=== PATIENT | female | born 1975 | race American Indian/Alaskan Native ===

== ENCOUNTER 2017-05-29 09:32 | Emergency (ER) | payer SELFPAY ==
[2017-05-29 09:52] VITALS: BP 135/93
--- NOTE | 2017-05-29 09:53 | Emergency Department Report ---
Chief Complaint: Pain General Stated Complaint: LEFT SIDED PAIN Time Seen by Provider: 05/29/17 09:50 - HPI History of Present Illness: pt states she woke up with L neck pain that radiates down to her left arm and leg. - ROS Review of Systems: - weakness - cp - Exam Physical Exam: PT is alert, appears uncomfortable. + post c-spine tenderness. + L trapezius tenderness MSE screening note: Focused history and physical exam performed. Due to findings the following was ordered: xr, labs ED Disposition for MSE Condition: Stable
[2017-05-29 10:26] LABS: Basophils % (Auto) 1.1 % (0.0-1.8); Eosinophils % (Auto) 1.4 % (0.0-4.3); Hematocrit 38.3 % (30.3-42.9); Hemoglobin 12.8 gm/dl (10.1-14.3); Mean Corpuscular HGB Conc 33 % (30-34); Mean Corpuscular Hemoglobin 32 pg (28-32); Mean Corpuscular Volume 96 fl (79-97); Platelet Count 255 K/mm3 (140-440); Red Cell Distribution Width 12.9 % (13.2-15.2); White Blood Count 4.3 K/mm3 (4.5-11.0)
[2017-05-29 10:43] LABS: Alanine Aminotransferase 9 units/L (7-56); Albumin 4.7 g/dL (3.9-5); Albumin/Globulin Ratio 1.4 %; Alkaline Phosphatase 39 units/L (35-129); Anion Gap 19 mmol/L; BUN/Creatinine Ratio 12.85; Blood Urea Nitrogen 9 mg/dL (7-17); Calcium 9.6 mg/dL (8.4-10.2); Carbon Dioxide 24 mmol/L (22-30); Chloride 103.6 mmol/L (98-107); Creatine Kinase 96 units/L (30-135); Glucose 94 mg/dL (65-100); Potassium 3.9 mmol/L (3.6-5.0); Sodium 143 mmol/L (137-145); Total Protein 8.1 g/dL (6.3-8.2)
--- NOTE | 2017-05-29 11:42 | XRay Report ---
CERVICAL SPINE RADIOGRAPHS INDICATION: Pain running down left side of neck. COMPARISON: None similar at this institution. FINDINGS: AP, open-mouth and lateral cervical spine radiographs demonstrate dens partly obscured due to overlying skull, though grossly unremarkable, in so far seen as also the lateral masses. Few radiopaque dental fillings. Clear imaged lung apices. Intact craniocervical articulation on the lateral view with normal predental space, airway and prevertebral soft tissues. Normal vertebral body stature with slight C5 and C6 degenerative spurring. Slight C5-C6 disc narrowing also not excluded. Adequate visualization up to C7-T1 disc. CONCLUSION: No acute cervical spine radiographic abnormality with slight C5-C6 degenerative changes suspected, as described. Please correlate. Thank you for the opportunity to participate in this patient's care.
--- NOTE | 2017-06-12 00:09 | ED Elopement Review ---
ED Pt Elopement review - Results review Lab results: Laboratory Tests 05/29/17 05/29/17 05/29/17 09:56 09:56 09:56 WBC 4.3 L RBC 4.00 Hgb 12.8 Hct 38.3 MCV 96 MCH 32 MCHC 33 RDW 12.9 L Plt Count 255 Lymph % (Auto) 26.1 [place] % (Auto) 7.5 H Eos % (Auto) 1.4 Baso % (Auto) 1.1 Lymph # 1.1 L [place] # 0.3 Eos # 0.1 Baso # 0.0 Seg Neutrophils % 63.9 Seg Neutrophils # 2.8 Sodium 143 Potassium 3.9 Chloride 103.6 Carbon Dioxide 24 Anion Gap 19 BUN 9 Creatinine 0.7 Estimated GFR > 60 BUN/Creatinine Ratio 12.85 Glucose 94 Calcium 9.6 Total Bilirubin 0.60 AST 15 ALT 9 Alkaline Phosphatase 39 Total Creatine Kinase 96 Total Protein 8.1 Albumin 4.7 Albumin/Globulin Ratio 1.4 HCG, Qual Negative - Call Back decision Pt Call Back Decision: No action required
== END 2017-05-29 16:15 | disposition left against medical advice (07) ==
LOC: ED 09:32
DX: M54.2 Cervicalgia (principal); Z53.21 Procedure and treatment not carried out due to patient leaving prior to being seen by health care provider
CPT/HCPCS: 36415; 72040; 80053; 82550; 84703; 85025

== ENCOUNTER 2018-04-07 11:16 | Emergency (ER) | payer SELFPAY ==
[2018-04-07 11:28] VITALS: BP 133/69
--- NOTE | 2018-04-07 12:05 | Emergency Department Report ---
ED Female HPI - General Chief complaint: Urogenital-Female Stated complaint: VAG IRRATATION/BLEEDING Time Seen by Provider: 04/07/18 11:50 Source: patient, family Mode of arrival: Ambulatory Limitations: No Limitations - History of Present Illness Initial comments: This is a 43-year-old female who is here for irregular vaginal bleeding in and she says she is having in irritation with urinating that feels like burning. concern for STD but then she changed her mind and says she is not concern for STD she just wants to be checked for STD. Her is in the room with her and he states that he is not having any symptoms of STD to include penile burning or penile discharge but patient reports that she is having some vaginal discharge. Reports mild cramping to her abdomen on and off at pelvic area but none now. Denies any nausea or vomiting. Denies any back pain. Denies any urinary frequency or urgency. Denies any back pain. MD Complaint: vaginal bleeding, dysuria, pelvic pain, possible STD Onset/Timin -: days(s) Severity scale (0 -10): 0 Are you Now?: No Last Menstrual Period: 03/28/18 (spotting) EDC: 01/02/19 Associated Symptoms: vaginal bleeding, abdominal pain, dysuria. denies: vaginal discharge, nausea/vomiting, fever/chills, headaches, loss of appetite, hematuria, rash, seizure, shortness of breath, syncope, weakness - Related Data Sexually active: Yes (. Bilateral tubal ligation 20 years ago) Previous Rx's Medication Instructions Recorded Last Taken Type Nitrofurantoin Monohyd/M-Cryst 100 mg PO Q12H 7 Days #14 capsule 04/07/18 Unknown Rx [Macrobid 100 mg Capsule] Allergies Allergy/AdvReac Type Severity Reaction Status Date / Time aspirin AdvReac Unknown Verified 05/29/17 09:54 metronidazole [From Flagyl] AdvReac Unknown Verified 05/29/17 09:54 ED Review of Systems ROS: Stated complaint: VAG IRRATATION/BLEEDING Other details as noted in HPI Constitutional: denies: chills, fever ENT: denies: throat pain Respiratory: denies: cough, shortness of breath, SOB with exertion, SOB at rest , stridor, wheezing Cardiovascular: denies: chest pain, palpitations, edema, syncope Gastrointestinal: abdominal pain. denies: nausea, vomiting, diarrhea, constipation Genitourinary: dysuria, abnormal menses. denies: urgency, frequency, hematuria , discharge, dyspareunia Musculoskeletal: denies: back pain, joint swelling, arthralgia, myalgia Skin: denies: rash, lesions Neurological: denies: headache, weakness ED Past Medical Hx - Past Medical History Previous Medical History?: Yes Additional medical history: ibs, diverticulitis, neuropathy,fibromyalgia - Surgical History Past Surgical History?: Yes Hx Cholecystectomy: Yes Additional Surgical History: Bilateral tubal ligation 20 years ago - Family History Family history: hypertension - Social History Smoking Status: Never Smoker Substance Use Type: None - Medications Home Medications: Home Medications Medication Instructions Recorded Confirmed Last Taken Type Nitrofurantoin Monohyd/M-Cryst 100 mg PO Q12H 7 Days #14 capsule 04/07/18 Unknown Rx [Macrobid 100 mg Capsule] ED Physical Exam - General Limitations: No Limitations General appearance: alert, in no apparent distress - Head Head exam: Present: atraumatic, normocephalic, normal inspection - Eye Eye exam: Present: normal appearance, PERRL, EOMI Pupils: Present: normal accommodation - ENT ENT exam: Present: normal exam, normal orophraynx, mucous membranes moist - Neck Neck exam: Present: normal inspection, full ROM. Absent: tenderness, lymphadenopathy - Respiratory Respiratory exam: Present: normal lung sounds bilaterally. Absent: respiratory distress, chest wall tenderness - Cardiovascular Cardiovascular Exam: Present: regular rate, normal rhythm, normal heart sounds. Absent: systolic murmur, diastolic murmur - GI/Abdominal GI/Abdominal exam: Present: soft, normal bowel sounds. Absent: distended, tenderness, guarding, rebound, rigid, organomegaly, mass - External exam: Present: normal external exam Speculum exam: Present: vaginal bleeding. Absent: erythema, vaginal discharge, cervical discharge, foreign body, tissue, laceration Bi-manual exam: Present: normal bi-manual exam - Extremities Exam Extremities exam: Present: normal inspection, full ROM, normal capillary refill , other (no clubbing, cyanosis or edema. +2 pulses to all extremities and no neurovascular compromise). Absent: tenderness, pedal edema, joint swelling, calf tenderness - Back Exam Back exam: Present: normal inspection - Neurological Exam Neurological exam: Present: alert, oriented X3, normal gait - Psychiatric Psychiatric exam: Present: normal affect, normal mood - Skin Skin exam: Present: warm, dry, intact, normal color. Absent: rash ED Course Vital Signs 04/07/18 11:25 Temperature 99 F Pulse Rate 94 H Respiratory 16 Rate Blood Pressure 133/69 O2 Sat by Pulse 100 Oximetry - Reevaluation(s) Reevaluation #1: 04/07/18 13:43 Patient is stable throughout ED course. She did not want to be treated for gonorrhea and chlamydia. Wet prep is negative. Urine is positive for infection and culture sent. ED Medical Decision Making - Lab Data Lab Results 04/07/18 Range/Units 11:45 Urine Color Yellow (Yellow) Urine Turbidity Clear (Clear) Urine pH 5.0 (5.0-7.0) Ur Specific [place] 1.024 (1.003-1.030) Urine Protein 30 mg/dl (Negative) mg/dL Urine Glucose (UA) Neg (Negative) mg/dL Urine Ketones Neg (Negative) mg/dL Urine Blood Lg (Negative) Urine Nitrite Neg (Negative) Urine Bilirubin Neg (Negative) Urine Urobilinogen 2.0 (<2.0) mg/dL Ur Leukocyte Esterase Tr (Negative) Urine WBC (Auto) 3.0 (0.0-6.0) /HPF Urine RBC (Auto) 4.0 (0.0-6.0) /HPF U Epithel Cells (Auto) 6.0 (0-13.0) /HPF Urine Bacteria (Auto) 1+ (Negative) /HPF Urine Mucus 3+ /HPF Urine HCG, Qual Negative (Negative) Urine culture sent Patient with blood in her urine due to menses Wet prep negative for clue cells, yeast or Trichomonas CHL sent and pending - Medical Decision Making ED course This 43-year-old female here report that she has been having abnormal vaginal bleeding in and she's been on her menses for 10 days. She said her periods have been irregular and she just moved from [place] and she does not have a physician as yet. She complains of abdominal cramping on and off but none today. Patient initially told triage nurse that she was concerned for STD without having any vaginal discharge but when I asked her with her room she said she doesn't want to be treated for STD she just wants to be tested and her said that he doesn't have any symptoms. Patient was seen and examined by myself and she is in stable condition. She is having irregular periods and will need to be seen by [facility] Pelvic exam done and normal except she has vaginal bleeding in her vaginal vault and coming from her cervical os. Urinalysis positive for bacteria and leukocyte Estrace and she has large amount of blood which is from her menses. Abdominal exam is normal. [facility] pending, urine culture pending. test negative. Wet prep is negative.I discussed with her lab results and she voiced understanding and does not want to be treated for gonorrhea and chlamydia at this time. She will return to medical records to get her test results in 5 days. Patient was understanding of diagnoses and treatment plan and period A/P: 1: Urinary tract infection -positive bacteria, leukocyte esterase will sent home on Macrobid. Urine culture sent and pending. Patient has large amount of blood in her urine due to menses 2: Irregular menses: Refer to [facility] at [facility] and she does not have access to care. 3:Encounter for for STD testing-decline empirically treatment, wet prep is negative She given education on medication, diagnosis, need to follow up to get Pap smear and to go to [facility] for irregular menses. I also advised her that she needs to return to medical records with her ID to have results of her Gonorrhea and chlamydia tests in 5 days. She voiced understanding. Disposition discharged from emergency room in stable condition with her with prescription for Macrobid. She was given good Rx card and she is to follow -up with [facility] and primary care at [facility] and she was given information to clinic. Vital signs are stable she is afebrile. She voiced understanding of discharge instructions. - Differential Diagnosis threatened miscarriage, STD, UTI, PID Critical care attestation.: If time is entered above; I have spent that time in minutes in the direct care of this critically ill patient, excluding procedure time. ED Disposition Clinical Impression: Screen for STD (sexually transmitted disease), Irregular menstruation, Acute cystitis without hematuria, Vaginal bleeding Disposition: TO HOME OR SELFCARE Is pt being admited?: No Does the pt Need Aspirin: No Condition: Stable Instructions: Sexually Transmitted Diseases (ED), Menorrhagia (ED), Dysuria (ED ), Urinary Tract Infection in Women (ED) Additional Instructions: Please follow up with [facility] for [facility] and primary care. Call on Sunday discussion appointments Take medication as prescribed for her UTI Vaginal bleeding in gets excessive and he developed dizziness, nausea and her vomiting or feeling faint, please return to emergency room. plenty of fluids drink plenty of fluids including water and cranberry juice at least 2 L daily Prescriptions: Nitrofurantoin Monohyd/M-Cryst [Macrobid 100 mg Capsule] 100 mg PO Q12H 7 Days # 14 capsule Referrals: [facility] [Outside] - 04/08/18 (Follow-up follow primary care visits and [facility]) Forms: Work/School Release Form(ED)
[2018-04-07 12:29] LABS: Bacteria,Urine 1+ /HPF (Negative); Bilirubin,Urine NEG (Negative); Blood,Urine LG (Negative); Color,Urine Yellow (Yellow); Mucus,Urine 3+ /HPF
[2018-04-07 12:31] LABS: HCG Qualitative,Urine Negative (Negative)
== END 2018-04-07 14:10 | disposition home or self-care (01) ==
LOC: ED 11:16
DX: N30.00 Acute cystitis without hematuria (principal); N93.9 Abnormal uterine and vaginal bleeding, unspecified; Z11.3 Encounter for screening for infections with a predominantly sexual mode of transmission; N92.6 Irregular menstruation, unspecified; K58.9 Irritable bowel syndrome, unspecified; Z90.49 Acquired absence of other specified parts of digestive tract; Z98.51 Tubal ligation status; Z88.6 Allergy status to analgesic agent
CPT/HCPCS: 81001; 81025; 87210; 87591; 99284

== ENCOUNTER 2018-06-05 12:01 | Emergency (ER) | payer SELFPAY ==
[2018-06-05 12:10] VITALS: BP 127/78
[2018-06-05 14:18] LABS: Bacteria,Urine 1+ /HPF (Negative); Bilirubin,Urine NEG (Negative); Blood,Urine MOD (Negative); Color,Urine Amber (Yellow); Mucus,Urine 2+ /HPF
--- NOTE | 2018-06-05 15:28 | Emergency Department Report ---
- General Chief Complaint: Upper Respiratory Infection Stated Complaint: FLU SYMPTONS Time Seen by Provider: 06/05/18 15:15 Source: patient Mode of arrival: Ambulatory Limitations: No Limitations - History of Present Illness Initial Comments: 43 yo female with a past medical history of IBS, neuropathy, fibromyalgia presents to the ospital complaining of upper respiratory symptoms and fever since this a.m. Her son is sick with similar symptoms. Patient was sent home from work requesting an excuse and treatment. She complains of nasal congestion , itchy watery eyes, sore throat, dry cough occasionally productive of clear mucus. She had a fever 102 at home prior to arrival. She denies chest pain or shortness of breath. Patient had nausea vomiting last night and some diarrhea today but denies abdominal pain other than generalized soreness. Patient has not had much to eat or drink today. - Related Data Previous Rx's Medication Instructions Recorded Last Taken Type Nitrofurantoin Monohyd/M-Cryst 100 mg PO Q12H 7 Days #14 capsule 04/07/18 Unknown Rx [Macrobid 100 mg Capsule] Guaifenesin/Pseudoephedrne HCl 1 tab PO BID PRN #20 tab 06/05/18 Unknown Rx [Mucinex D ER 1,200-120 mg Tab] Ibuprofen [Motrin] 800 mg PO Q8HR PRN #30 tablet 06/05/18 Unknown Rx Loperamide [Imodium] 2 mg PO Q2HR PRN #15 capsule 06/05/18 Unknown Rx Ondansetron [Zofran Odt] 4 mg PO Q8HR PRN #20 tab.rapdis 06/05/18 Unknown Rx Allergies Allergy/AdvReac Type Severity Reaction Status Date / Time aspirin AdvReac Unknown Verified 05/29/17 09:54 metronidazole [From Flagyl] AdvReac Unknown Verified 05/29/17 09:54 ED Review of Systems ROS: Stated complaint: FLU SYMPTONS Other details as noted in HPI Comment: All other systems reviewed and negative ED Past Medical Hx - Past Medical History Previous Medical History?: Yes Additional medical history: ibs, diverticulitis, neuropathy,fibromyalgia - Surgical History Past Surgical History?: Yes Hx Cholecystectomy: Yes Additional Surgical History: Bilateral tubal ligation 20 years ago - Social History Smoking Status: Never Smoker Substance Use Type: None - Medications Home Medications: Home Medications Medication Instructions Recorded Confirmed Last Taken Type Nitrofurantoin Monohyd/M-Cryst 100 mg PO Q12H 7 Days #14 capsule 04/07/18 Unknown Rx [Macrobid 100 mg Capsule] Guaifenesin/Pseudoephedrne HCl 1 tab PO BID PRN #20 tab 06/05/18 Unknown Rx [Mucinex D ER 1,200-120 mg Tab] Ibuprofen [Motrin] 800 mg PO Q8HR PRN #30 tablet 06/05/18 Unknown Rx Loperamide [Imodium] 2 mg PO Q2HR PRN #15 capsule 06/05/18 Unknown Rx Ondansetron [Zofran Odt] 4 mg PO Q8HR PRN #20 tab.rapdis 06/05/18 Unknown Rx ED Physical Exam - General Limitations: No Limitations - Other Other exam information: General: No limitations, patient is alert in no acute distress Head exam: Atraumatic, normocephalic Eyes exam: Normal appearance ENT: Nasal congestion, no pharyngeal exudates Neck exam: Normal inspection, full range of motion, no meningismus nontender Respiratory exam: Clear to auscultation bilateral, no wheezes, rales, crackles Cardiovascular: Normal rate and rhythm, normal heart sounds Abdomen: Soft, nondistended, mild generalized tenderness without rebound, guarding, positive normal bowel sounds Extremity: Full range of motion normal inspection no deformity Back: Normal Inspection, full range of motion, no tenderness Neurologic: Alert, oriented x3, cranial nerves intact, no motor or sensory deficit Psychiatric: normal affect, normal mood Skin: Warm, dry, intact ED Course Vital Signs 06/05/18 12:06 Temperature 98.3 F Pulse Rate 104 H Respiratory 16 Rate Blood Pressure 127/78 O2 Sat by Pulse 96 Oximetry ED Medical Decision Making - Medical Decision Making Patient presented with signs of viral syndrome Mild tachycardia likely related to dehydration as indicated by high specific gravity and ketones in urine Patient will be treated symptomatically and provided work excuse as requested Will be discharged as requested - Differential Diagnosis UTI, pneumonia, bronchitis, pharyngitis Critical Care Time: No Critical care attestation.: If time is entered above; I have spent that time in minutes in the direct care of this critically ill patient, excluding procedure time. ED Disposition Clinical Impression: Viral syndrome Disposition: DC-01 TO HOME OR SELFCARE Is pt being admited?: No Does the pt Need Aspirin: No Condition: Stable Instructions: Viral Syndrome (ED) Additional Instructions: Take the medication as prescribed. Follow up with your doctor. Return if symptoms worsen as indicated by your discharge instructions. Take Tylenol or Motrin as needed for pain and fever Prescriptions: Guaifenesin/Pseudoephedrne HCl [Mucinex D ER 1,200-120 mg Tab] 1 tab PO BID PRN #20 tab PRN Reason: Cough Ibuprofen [Motrin] 800 mg PO Q8HR PRN #30 tablet PRN Reason: Pain, Moderate (4-6) Loperamide [Imodium] 2 mg PO Q2HR PRN #15 capsule PRN Reason: Diarrhea Ondansetron [Zofran Odt] 4 mg PO Q8HR PRN #20 tab.rapdis PRN Reason: Nausea And Vomiting Referrals: [facility] [Provider Group] - 3-5 Days Time of Disposition: 15:32
== END 2018-06-05 17:00 | disposition home or self-care (01) ==
LOC: ED 12:01
DX: B34.9 Viral infection, unspecified (principal); M79.7 Fibromyalgia; Z90.49 Acquired absence of other specified parts of digestive tract; Z98.51 Tubal ligation status; Z88.6 Allergy status to analgesic agent; Z88.1 Allergy status to other antibiotic agents
CPT/HCPCS: 81001; 99282

== ENCOUNTER 2018-10-28 07:00 | Emergency (ER) | payer SELFPAY ==
[2018-10-28 07:12] VITALS: BP 127/91
[2018-10-28 07:54] LABS: Bacteria,Urine 1+ /HPF (Negative); Bilirubin,Urine NEG (Negative); Blood,Urine NEG (Negative); Color,Urine Yellow (Yellow); Mucus,Urine 2+ /HPF; Protein,Urine <15 mg/dL mg/dL (Negative)
[2018-10-28 07:59] LABS: HCG Qualitative,Urine Negative (Negative)
--- NOTE | 2018-10-28 08:02 | Emergency Department Report ---
ED Dysuria HPI - HPI Chief Complaint: Abdominal Pain Stated Complaint: LT SIDE PAIN/CRAMPING Time Seen by Provider: 10/28/18 07:47 Duration: 1 Day Location of Discomfort: Flank (left) Severity: Mild Symptoms: Dysuria: No, Frequency: No, Suprapubic Pain: No, Flank Pain: No, Fever: No, Hematuria: No, Abdominal Pain: No, Previous UTI's: No Other History: Pt is 43 yo AA female who comes to the ER w l flank pain due to her fibromyalgia. She could not go to work today and is asking for a work note. no fever, no dysuria, no hematuria, no vaginal discharge. LMP 2 w ago. no home meds. no pcp. ED Review of Systems ROS: Stated complaint: LT SIDE PAIN/CRAMPING Other details as noted in HPI Comment: All other systems reviewed and negative Constitutional: denies: see HPI Eyes: denies: eye pain ENT: denies: throat pain Respiratory: denies: orthopnea Cardiovascular: denies: palpitations Endocrine: denies: excessive sweating Gastrointestinal: as per HPI. denies: nausea Genitourinary: as per HPI. denies: dysuria Musculoskeletal: denies: back pain Skin: denies: rash ED Past Medical Hx - Past Medical History Previous Medical History?: Yes Additional medical history: ibs, diverticulitis, neuropathy,fibromyalgia - Surgical History Past Surgical History?: Yes Hx Cholecystectomy: Yes Additional Surgical History: Bilateral tubal ligation 20 years ago - Social History Smoking Status: Former Smoker Substance Use Type: None - Medications Home Medications: Home Medications Medication Instructions Recorded Confirmed Last Taken Type Nitrofurantoin Monohyd/M-Cryst 100 mg PO Q12H 7 Days #14 capsule 04/07/18 Unknown Rx [Macrobid 100 mg Capsule] Guaifenesin/Pseudoephedrne HCl 1 tab PO BID PRN #20 tab 06/05/18 Unknown Rx [Mucinex D ER 1,200-120 mg Tab] Ibuprofen [Motrin] 800 mg PO Q8HR PRN #30 tablet 06/05/18 Unknown Rx Loperamide [Imodium] 2 mg PO Q2HR PRN #15 capsule 06/05/18 Unknown Rx Ondansetron [Zofran Odt] 4 mg PO Q8HR PRN #20 tab.rapdis 06/05/18 Unknown Rx Dysuria Exam - Exam General: Vital signs noted. No distress. Alert and acting appropriately. Exam: Yes Moist Mucous Membranes, No CVA Tenderness, No Abdominal Tenderness, No Rigidity or Guarding Labs: Lab Results 10/28/18 Range/Units 07:32 Urine Color Yellow (Yellow) Urine Turbidity Slightly-cloudy (Clear) Urine pH 5.0 (5.0-7.0) Ur Specific [place] 1.021 (1.003-1.030) Urine Protein <15 mg/dl (Negative) mg/dL Urine Glucose (UA) Neg (Negative) mg/dL Urine Ketones Neg (Negative) mg/dL Urine Blood Neg (Negative) Urine Nitrite Neg (Negative) Urine Bilirubin Neg (Negative) Urine Urobilinogen 4.0 (<2.0) mg/dL Ur Leukocyte Esterase Tr (Negative) Urine WBC (Auto) 3.0 (0.0-6.0) /HPF Urine RBC (Auto) 6.0 (0.0-6.0) /HPF U Epithel Cells (Auto) 13.0 (0-13.0) /HPF Urine Bacteria (Auto) 1+ (Negative) /HPF Urine Mucus 2+ /HPF Urine HCG, Qual Negative (Negative) ED Course Vital Signs 10/28/18 07:09 Temperature 97.7 F Pulse Rate 78 Respiratory 16 Rate Blood Pressure 127/91 O2 Sat by Pulse 100 Oximetry ED Medical Decision Making - Medical Decision Making asking for work note because she could not get up this am because of her fibromyalgia Lab Results 10/28/18 Range/Units 07:32 Urine Color Yellow (Yellow) Urine Turbidity Slightly-cloudy (Clear) Urine pH 5.0 (5.0-7.0) Ur Specific [place] 1.021 (1.003-1.030) Urine Protein <15 mg/dl (Negative) mg/dL Urine Glucose (UA) Neg (Negative) mg/dL Urine Ketones Neg (Negative) mg/dL Urine Blood Neg (Negative) Urine Nitrite Neg (Negative) Urine Bilirubin Neg (Negative) Urine Urobilinogen 4.0 (<2.0) mg/dL Ur Leukocyte Esterase Tr (Negative) Urine WBC (Auto) 3.0 (0.0-6.0) /HPF Urine RBC (Auto) 6.0 (0.0-6.0) /HPF U Epithel Cells (Auto) 13.0 (0-13.0) /HPF Urine Bacteria (Auto) 1+ (Negative) /HPF Urine Mucus 2+ /HPF Urine HCG, Qual Negative (Negative) - Differential Diagnosis here for a work note Critical care attestation.: If time is entered above; I have spent that time in minutes in the direct care of this critically ill patient, excluding procedure time. ED Disposition Clinical Impression: Fibromyalgia, Malingering Disposition: DC- TO HOME OR SELFCARE Is pt being admited?: No Does the pt Need Aspirin: No Condition: Stable Instructions: Fibromyalgia (ED) Additional Instructions: motrin or tylenol for pain follow up pcp below Referrals: [facility] [Primary Care Provider] - 3-5 Days AZALEA COOPER MD [Staff Physician] - 3-5 Days Forms: Work/School Release Form(ED) Time of Disposition: 08:02
== END 2018-10-28 08:05 | disposition home or self-care (01) ==
LOC: ED 07:00
DX: Z76.5 Malingerer [conscious simulation] (principal); M79.7 Fibromyalgia; K58.9 Irritable bowel syndrome, unspecified; G62.9 Polyneuropathy, unspecified; Z90.49 Acquired absence of other specified parts of digestive tract; Z98.51 Tubal ligation status; Z87.891 Personal history of nicotine dependence; Z88.6 Allergy status to analgesic agent; Z88.1 Allergy status to other antibiotic agents
CPT/HCPCS: 81001; 81025; 99283

== ENCOUNTER 2018-11-11 18:38 | Emergency (ER) | payer SELFPAY ==
[2018-11-11 18:53] VITALS: BP 133/76
[2018-11-11 19:21] LABS: Bilirubin,Urine NEG (Negative); Blood,Urine NEG (Negative); Color,Urine Yellow (Yellow); Mucus,Urine FEW /HPF; Protein,Urine <15 mg/dL mg/dL (Negative); WBC,Urine < 1.0 /HPF (0.0-6.0)
[2018-11-11] MEDS ORDERED: BENTYL PO ONE (21:39)
[2018-11-11] MEDS ORDERED: TYLENOL PO ONE (21:39)
[2018-11-11] MEDS ORDERED: ZOFRAN ODT PO ONE (21:40)
--- NOTE | 2018-11-11 21:44 | Emergency Department Report ---
ED Abdominal Pain HPI - General Chief Complaint: Abdominal Pain Stated Complaint: ABD PAIN/PAINFUL BOWEL MOVEMENTS Time Seen by Provider: 11/11/18 21:24 Source: patient Mode of arrival: Ambulatory Limitations: No Limitations - History of Present Illness Initial Comments: 43-year-old -[place]iqu[place] female reports she has right upper quadrant pain 2 months. Within the last 3 days she's had nausea vomiting diarrhea. Patient reports she had her gallbladder removed in 2016. She reports darker urine than usual. Patient admits to nausea vomiting diarrhea least 5-6 constantly today. Last vomited about 1430. She has a past medical history of IBS and fibromyalgia. Patient was last seen here in the emergency room on 10/28/2018 has never followed up as she was instructed. Patient reports she does not have a primary care provider and has taken nothing for her pain. MD Complaint: abdominal pain -: days(s) (3 nausea, vomiting and diarrhea), month(s) (2 abdominal pain) Location: RUQ, epigastric Radiation: none Migration to: no migration Severity scale (0 -10): 6 Quality: aching Consistency: constant Improves With: nothing Worsens With: nothing Associated Symptoms: nausea, vomiting, diarrhea Treatments Prior to Arrival: other (none) - Related Data LMP Date: 10/16/18 Previous Rx's Medication Instructions Recorded Last Taken Type Nitrofurantoin Monohyd/M-Cryst 100 mg PO Q12H 7 Days #14 capsule 04/07/18 Unknown Rx [Macrobid 100 mg Capsule] Guaifenesin/Pseudoephedrne HCl 1 tab PO BID PRN #20 tab 06/05/18 Unknown Rx [Mucinex D ER 1,200-120 mg Tab] Ibuprofen [Motrin] 800 mg PO Q8HR PRN #30 tablet 06/05/18 Unknown Rx Loperamide [Imodium] 2 mg PO Q2HR PRN #15 capsule 06/05/18 Unknown Rx Ondansetron [Zofran ODT TAB] 4 mg PO Q8HR PRN #12 tab.rapdis 11/11/18 Unknown Rx Allergies Allergy/AdvReac Type Severity Reaction Status Date / Time aspirin AdvReac Unknown Verified 05/29/17 09:54 metronidazole [From Flagyl] AdvReac Unknown Verified 05/29/17 09:54 ED Review of Systems ROS: Stated complaint: ABD PAIN/PAINFUL BOWEL MOVEMENTS Other details as noted in HPI Comment: All other systems reviewed and negative Gastrointestinal: abdominal pain, nausea, vomiting, diarrhea ED Past Medical Hx - Past Medical History Additional medical history: ibs, diverticulitis, neuropathy,fibromyalgia - Surgical History Hx Cholecystectomy: Yes Additional Surgical History: Bilateral tubal ligation 20 years ago, 3 - Social History Smoking Status: Current Some Day Smoker Substance Use Type: None - Medications Home Medications: Home Medications Medication Instructions Recorded Confirmed Last Taken Type Nitrofurantoin Monohyd/M-Cryst 100 mg PO Q12H 7 Days #14 capsule 04/07/18 Unknown Rx [Macrobid 100 mg Capsule] Guaifenesin/Pseudoephedrne HCl 1 tab PO BID PRN #20 tab 06/05/18 Unknown Rx [Mucinex D ER 1,200-120 mg Tab] Ibuprofen [Motrin] 800 mg PO Q8HR PRN #30 tablet 06/05/18 Unknown Rx Loperamide [Imodium] 2 mg PO Q2HR PRN #15 capsule 06/05/18 Unknown Rx Ondansetron [Zofran ODT TAB] 4 mg PO Q8HR PRN #12 tab.rapdis 11/11/18 Unknown Rx ED Physical Exam - General Limitations: No Limitations General appearance: alert, in no apparent distress - Head Head exam: Present: atraumatic, normocephalic - Eye Eye exam: Present: normal appearance, EOMI - ENT ENT exam: Present: mucous membranes moist - Respiratory Respiratory exam: Present: normal lung sounds bilaterally. Absent: respiratory distress - Cardiovascular Cardiovascular Exam: Present: regular rate, normal rhythm. Absent: systolic murmur, diastolic murmur, rubs, gallop - GI/Abdominal GI/Abdominal exam: Present: soft, tenderness (right upper quadrant), normal bowel sounds. Absent: distended - Back Exam Back exam: Present: full ROM - Neurological Exam Neurological exam: Present: alert, oriented X3 - Psychiatric Psychiatric exam: Present: normal affect, normal mood - Skin Skin exam: Present: warm, dry, intact, normal color. Absent: rash ED Course Vital Signs 11/11/18 11/11/18 18:48 21:57 Temperature 98.7 F Pulse Rate 73 Respiratory 20 20 Rate Blood Pressure 133/76 O2 Sat by Pulse 99 Oximetry ED Medical Decision Making - Lab Data Result diagrams: 11/11/18 21:49 - Medical Decision Making Patient has been evaluated by this provider in fast track. Patient has CBC CMP and lipase Bentyl and Zofran and acetaminophen. Critical care attestation.: If time is entered above; I have spent that time in minutes in the direct care of this critically ill patient, excluding procedure time. ED Disposition Clinical Impression: Nausea vomiting and diarrhea Abdominal pain Qualifiers: Abdominal location: right upper quadrant Qualified Code(s): R10.11 - Right upper quadrant pain Disposition: - TO HOME OR SELFCARE Is pt being admited?: No Does the pt Need Aspirin: No Condition: Stable Instructions: Abdominal Pain (ED) Additional Instructions: Please take Tylenol. All your labs within normal limits. Increase her fluid intake. Take Zofran as needed for nausea and vomiting. Prescriptions: Ondansetron [Zofran ODT TAB] 4 mg PO Q8HR PRN #12 tab.rapdis PRN Reason: Nausea And Vomiting Referrals: AZALEA COOPER MD [Primary Care Provider] - 3-5 Days Forms: Work/School Release Form(ED)
[2018-11-11 22:07] LABS: Basophils % (Auto) 0.8 % (0.0-1.8); Eosinophils # (Auto) 0.2 K/mm3 (0.0-0.4); Eosinophils % (Auto) 3.6 % (0.0-4.3); Hematocrit 36.3 % (30.3-42.9); Lymphocytes # (Auto) 2.1 K/mm3 (1.2-5.4); Lymphocytes % (Auto) 40.8 % (13.4-35.0); Mean Corpuscular HGB Conc 33 % (30-34); Mean Corpuscular Volume 97 fl (79-97); Monocytes # (Auto) 0.6 K/mm3 (0.0-0.8); Monocytes % (Auto) 11.7 % (0.0-7.3); Platelet Count 188 K/mm3 (140-440); Red Blood Count 3.72 M/mm3 (3.65-5.03)
[2018-11-11 22:23] LABS: Alanine Aminotransferase 12 units/L (7-56); Albumin 4.5 g/dL (3.9-5); BUN/Creatinine Ratio 17; Blood Urea Nitrogen 10 mg/dL (7-17); Calcium 9.4 mg/dL (8.4-10.2); Hemolysis Index 3
== END 2018-11-11 23:10 | disposition home or self-care (01) ==
LOC: ED 18:38
DX: R11.2 Nausea with vomiting, unspecified (principal); R19.7 Diarrhea, unspecified; R10.11 Right upper quadrant pain; M79.7 Fibromyalgia; F17.200 Nicotine dependence, unspecified, uncomplicated; Z88.6 Allergy status to analgesic agent; Z88.5 Allergy status to narcotic agent; Z90.49 Acquired absence of other specified parts of digestive tract; Z98.51 Tubal ligation status
CPT/HCPCS: 36415; 80053; 81001; 83690; 85025; 99283; Q0162

== ENCOUNTER 2019-09-11 14:14 | Emergency (ER) | payer SELFPAY ==
--- NOTE | 2019-09-11 14:33 | Event Note ---
ED Screening Note Date of service: 09/11/19 Time: 14:29 ED Screening Note: Reports cutting yams about 30 minutes ago and cut he finger on knife. reports cut to left thumb that will not stp bleeding. no other injuries GEN:Alert and oriented x3. NAD EXT: left thumb with laceration to distal palmar side tuft with bleeding. TTP. NL ROM Left thub injury with laceration This initial assessment/diagnostic orders/clinical plan/treatment(s) is/are subject to change based on patients health status, clinical progression and re- assessment by fellow clinical providers in the ED. Further treatment and workup at subsequent clinical providers discretion. Patient/guardian urged not to elope from the ED as their condition may be serious if not clinically assessed and managed. Initial orders include: LAC repair
[2019-09-11 14:50] VITALS: BP 134/69
--- NOTE | 2019-09-11 15:40 | Emergency Department Report ---
ED Laceration HPI - HPI Chief Complaint: Laceration/Recheck/Suture Stated Complaint: LEFT THUMB LACERATION Time Seen by Provider: 09/11/19 14:28 Occurred When: Today Tetanus Status: Not up to Date (Pt refused tetanus) Laceration Symptoms: Yes Pain, No Foreign Body Sensation, No Numbness, No Weakness ED Review of Systems ROS: Stated complaint: LEFT THUMB LACERATION Other details as noted in HPI Comment: All other systems reviewed and negative Skin: other (left thumb laceration ) ED Past Medical Hx - Past Medical History Previous Medical History?: No Additional medical history: ibs, diverticulitis, neuropathy,fibromyalgia - Surgical History Past Surgical History?: Yes Hx Cholecystectomy: Yes Additional Surgical History: Bilateral tubal ligation 20 years ago, 3 - Social History Smoking Status: Never Smoker - Medications Home Medications: Home Medications Medication Instructions Recorded Confirmed Last Taken Type Nitrofurantoin Monohyd/M-Cryst 100 mg PO Q12H 7 Days #14 capsule 04/07/18 Unknown Rx [Macrobid 100 mg Capsule] Guaifenesin/Pseudoephedrne HCl 1 tab PO BID PRN #20 tab 06/05/18 Unknown Rx [Mucinex D ER 1,200-120 mg Tab] Ibuprofen [Motrin] 800 mg PO Q8HR PRN #30 tablet 06/05/18 Unknown Rx Loperamide [Imodium] 2 mg PO Q2HR PRN #15 capsule 06/05/18 Unknown Rx Ondansetron [Zofran ODT TAB] 4 mg PO Q8HR PRN #12 tab.rapdis 11/11/18 Unknown Rx Laceration Physical Exam - Exam General: Vital signs noted. No distress. Alert and acting appropriately. Wound Length (cm): 1 Laceration Location: Upper Extremity (left thumb) Laceration Exam: Yes Normal Distal CMS, No Foreign Body, No Exposed Tendon, Vessel, or Nerve, No Tendon Injury ED Course Vital Signs 09/11/19 14:28 Temperature 98.2 F Pulse Rate 83 Respiratory 18 Rate Blood Pressure 134/69 O2 Sat by Pulse 96 Oximetry - Laceration /Wound Repair Left Finger Wound Location: upper extremity Wound Length (cm): 1 (palmar side of distal left thumb superficial laceration no bleeding. ) Wound Explored: clean Irrigated w/ Saline (ccs): 40 Betadine Prep?: No Wound Repaired With: Dermabond Sterile Dressing Applied?: No Critical care attestation.: If time is entered above; I have spent that time in minutes in the direct care of this critically ill patient, excluding procedure time. ED Disposition Clinical Impression: Finger laceration Qualifiers: Encounter type: initial encounter Finger: thumb Damage to nail status: without damage Foreign body presence: without foreign body Laterality: left Qualified Code(s): S61.012A - Laceration without foreign body of left thumb without damage to nail, initial encounter Disposition: DC-01 TO HOME OR SELFCARE Is pt being admited?: No Does the pt Need Aspirin: No Condition: Stable Instructions: Skin Adhesive Care (ED) Additional Instructions: Keep wound clean and dry . Follow up in 2-3 days for sooner if you develop increasing pain redness or swelling or inability to move your finger. Take advil or tylenol as directed by package insert for pain Time of Disposition: 15:39
[2019-09-11] MEDS ORDERED: BACITRACIN ZINC OINT 28.4 GM TP ONE (16:59)
== END 2019-09-11 16:00 | disposition home or self-care (01) ==
LOC: ED 14:14
DX: S61.012A Laceration without foreign body of left thumb without damage to nail, initial encounter (principal); Z90.49 Acquired absence of other specified parts of digestive tract; Z98.51 Tubal ligation status; Z98.890 Other specified postprocedural states; Z79.899 Other long term (current) drug therapy; Z88.1 Allergy status to other antibiotic agents; Z88.6 Allergy status to analgesic agent; X58.XXXA Exposure to other specified factors, initial encounter; Y93.89 Activity, other specified; Y92.89 Other specified places as the place of occurrence of the external cause; Y99.8 Other external cause status

== ENCOUNTER 2019-11-11 01:20 | Emergency (ER) | payer SELFPAY ==
[2019-11-11 01:50] LABS: Basophils # (Auto) 0.1 K/mm3 (0.0-0.1); Basophils % (Auto) 1.3 % (0.0-1.8); Eosinophils # (Auto) 0.3 K/mm3 (0.0-0.4); Eosinophils % (Auto) 7.1 % (0.0-4.3); Lymphocytes # (Auto) 1.5 K/mm3 (1.2-5.4); Lymphocytes % (Auto) 36.5 % (13.4-35.0); Mean Corpuscular HGB Conc 33 % (30-34); Mean Corpuscular Volume 98 fl (79-97); Monocytes # (Auto) 0.4 K/mm3 (0.0-0.8); Monocytes % (Auto) 9.4 % (0.0-7.3); Platelet Count 185 K/mm3 (140-440); Red Cell Distribution Width 12.5 % (13.2-15.2)
[2019-11-11 02:17] LABS: Alanine Aminotransferase 11 units/L (7-56); Albumin 4.5 g/dL (3.9-5); BUN/Creatinine Ratio 13; Blood Urea Nitrogen 9 mg/dL (7-17); Calcium 9.5 mg/dL (8.4-10.2); Hemolysis Index 5
[2019-11-11] MEDS ORDERED: FAMOTIDINE 20 MG/2 ML INJ IV ONE (02:59)
[2019-11-11] MEDS ORDERED: ONDANSETRON 4 MG/2 ML INJ IV ONE (02:59)
[2019-11-11] MEDS ORDERED: SODIUM CHLORIDE 0.9% 1000 ML 1,000 ML IV ONE (02:59)
[2019-11-11] MEDS ORDERED: DICYCLOMINE 20 MG/2 ML INJ IM ONE (02:59)
[2019-11-11] MEDS ORDERED: ACETAMINOPHEN 325 MG TAB PO ONE (03:00)
[2019-11-11] MEDS ORDERED: SUCRALFATE 1 GM/10 ML ORAL LIQD PO ONE (03:00)
--- NOTE | 2019-11-11 03:01 | Emergency Department Report ---
ED General Adult HPI - General Chief complaint: Abdominal Pain Stated complaint: STOMACH PAIN W/ CRAMPING Time Seen by Provider: 11/11/19 02:47 Source: patient, RN notes reviewed Mode of arrival: Ambulatory Limitations: No Limitations - History of Present Illness Initial comments: During the history and physical examination, I am engineering and scientific programmer and escorted by nurse Meme Bee Patient is a 44-year-old female who is not known to this provider previously, reports a history of fibromyalgia, diverticulitis, IBS, neuropathy, tubal ligation, , adhesion removal, as well as cholecystectomy. Patient presents to the ER today with a complaint of epigastric abdominal pain, nausea, vomiting, fever at home yesterday to 101. Patient has no cough. She also endorses feeling like her bilateral feet were cold and numb, yesterday, this is now resolved. At the moment, denies headache, neck pain, chest pain, shortness of breath, irritative and obstructive urinary symptoms. Abdominal pain is epigastric, right upper quadrant, aching and sharp, increases with palpation, vomiting, decreases with rest. Denies DVT and pulmonary embolism risk factors, recent surgery, and oral contraceptive use. -: Gradual, days(s) Location: abdomen Radiation: other Quality: other Consistency: other Improves with: other Worsens with: other Associated Symptoms: other - Related Data Previous Rx's Medication Instructions Recorded Last Taken Type Guaifenesin/Pseudoephedrne HCl 1 tab PO BID PRN #20 tab 06/05/18 Unknown Rx [Mucinex D ER 1,200-120 mg Tab] Ibuprofen [Motrin] 800 mg PO Q8HR PRN #30 tablet 06/05/18 Unknown Rx Acetaminophen [Non-Aspirin Extra 500 mg PO Q6HR PRN #30 tablet 11/11/19 Unknown Rx Strength] Amoxicillin/Potassium Clav 1 each PO BID #10 tablet 11/11/19 Unknown Rx [Augmentin 875-125 Tablet] Famotidine [Pepcid] 20 mg PO BID #10 tablet 11/11/19 Unknown Rx Ale Root [Ale] 250 mg PO QID PRN #30 capsule 11/11/19 Unknown Rx Metoclopramide [Reglan] 10 mg PO QID PRN #30 tablet 11/11/19 Unknown Rx Allergies Allergy/AdvReac Type Severity Reaction Status Date / Time ciprofloxacin [From Cipro] Allergy Vomiting Verified 11/11/19 01:29 sulfamethoxazole Allergy Vomiting Verified 11/11/19 01:29 [From Bactrim] trimethoprim [From Bactrim] Allergy Vomiting Verified 11/11/19 01:29 aspirin AdvReac Unknown Verified 05/29/17 09:54 metronidazole [From Flagyl] AdvReac Unknown Verified 05/29/17 09:54 ED Review of Systems ROS: Stated complaint: STOMACH PAIN W/ CRAMPING Other details as noted in HPI Constitutional: denies: fever Eyes: denies: eye discharge ENT: denies: congestion Respiratory: denies: wheezing Cardiovascular: denies: syncope Gastrointestinal: abdominal pain, nausea, vomiting, diarrhea Genitourinary: denies: dysuria Musculoskeletal: arthralgia, myalgia Skin: denies: lesions Neurological: weakness Psychiatric: anxiety Hematological/Lymphatic: denies: easy bleeding ED Past Medical Hx - Past Medical History Previous Medical History?: Yes Additional medical history: ibs, diverticulitis, neuropathy,fibromyalgia - Surgical History Past Surgical History?: Yes Hx Cholecystectomy: Yes Additional Surgical History: Bilateral tubal ligation 20 years ago, 3 . adhesion removal from stomach - Social History Smoking Status: Never Smoker Substance Use Type: Marijuana - Medications Home Medications: Home Medications Medication Instructions Recorded Confirmed Last Taken Type Guaifenesin/Pseudoephedrne HCl 1 tab PO BID PRN #20 tab 06/05/18 Unknown Rx [Mucinex D ER 1,200-120 mg Tab] Ibuprofen [Motrin] 800 mg PO Q8HR PRN #30 tablet 06/05/18 Unknown Rx Acetaminophen [Non-Aspirin Extra 500 mg PO Q6HR PRN #30 tablet 11/11/19 Unknown Rx Strength] Amoxicillin/Potassium Clav 1 each PO BID #10 tablet 11/11/19 Unknown Rx [Augmentin 875-125 Tablet] Famotidine [Pepcid] 20 mg PO BID #10 tablet 11/11/19 Unknown Rx Ale Root [Ale] 250 mg PO QID PRN #30 capsule 11/11/19 Unknown Rx Metoclopramide [Reglan] 10 mg PO QID PRN #30 tablet 11/11/19 Unknown Rx ED Physical Exam - General Limitations: No Limitations General appearance: alert, in no apparent distress - Head Head exam: Present: atraumatic, normocephalic - Eye Eye exam: Present: normal appearance, EOMI. Absent: nystagmus - ENT ENT exam: Present: normal exam, normal orophraynx, mucous membranes moist, normal external ear exam - Neck Neck exam: Present: normal inspection, full ROM. Absent: tenderness, mening ismus - Respiratory Respiratory exam: Present: normal lung sounds bilaterally. Absent: respiratory distress - Cardiovascular Cardiovascular Exam: Present: regular rate, normal rhythm, normal heart sounds. Absent: bradycardia, tachycardia, irregular rhythm, systolic murmur, diastolic murmur, rubs, gallop - GI/Abdominal GI/Abdominal exam: Present: soft, tenderness, other (There is epigastric tenderness, without rebound, guarding or peritoneal sign). Absent: distended, guarding, rebound, rigid, pulsatile mass - Extremities Exam Extremities exam: Present: normal inspection, full ROM, normal capillary refill (sensation intact to light touch and proprioception in the bilateral lower extremities), other (2+ pulses noted in the bilateral upper and lower extremities. There is no long bony tenderness. The pelvis is stable. The muscular compartments are soft. There is no palpable cord. There is no redness, pus or streaking.). Absent: pedal edema, calf tenderness - Back Exam Back exam: Present: normal inspection, full ROM. Absent: tenderness, CVA tenderness (R), CVA tenderness (L), muscle spasm, vertebral tenderness - Neurological Exam Neurological exam: Present: alert, oriented X3, normal gait, other (there is no facial droop. Tongue is midline. Extraocular movements are intact bilaterally. Walking with a steady gait. Speaking in full sentences. Normal appropriate thought content. 5 out of 5 strength in 4 extremities. Sensation is intact to light touch in 4 extremities.). Absent: motor sensory deficit - Psychiatric Psychiatric exam: Present: anxious - Skin Skin exam: Present: warm, dry, intact, normal color. Absent: rash ED Course Vital Signs 11/11/19 01:24 Temperature 97.9 F Pulse Rate 77 Respiratory 18 Rate Blood Pressure 117/71 O2 Sat by Pulse 100 Oximetry - Reevaluation(s) Reevaluation #1: 11/11/19 03:24 Differential diagnosis, including but not limited to: Viral syndrome, colitis, diverticulitis, IBS, fibromyalgia flare/exacerbation, obstruction, volvulus Assessment and plan: 44-year-old female with multiple abdominal surgeries, with epigastric tenderness, complaint of nausea, vomiting, diarrhea. She is currently afebrile with reassuring vital signs. Physical exam unremarkable with the exception of reproducible epigastric tenderness. Endorses no pulmonary embolism or DVT risk factors, low risk by well's criteria, perc Negative. We will treat her symptoms, obtain EKG, CT scan abdomen pelvis, and reassess. Reevaluation #2: 11/11/19 04:55 Feels improved. No active vomiting. CT scan suggests possible colitis. We'll discharge the patient with Augmentin, pain medication, nausea medication, she will need to follow up with outpatient gastroenterology. Return precautions are reviewed. Belly soft on repeat examination. ED Medical Decision Making - Lab Data Result diagrams: 11/11/19 01:39 11/11/19 01:39 Vital Signs 11/11/19 01:24 Temperature 97.9 F Pulse Rate 77 Respiratory 18 Rate Blood Pressure 117/71 O2 Sat by Pulse 100 Oximetry Lab Results 11/11/19 11/11/19 11/11/19 Range/Units 01:39 01:39 02:37 WBC 4.0 L (4.5-11.0) K/mm3 RBC 4.00 (3.65-5.03) M/mm3 Hgb 13.0 (10.1-14.3) gm/dl Hct 39.0 (30.3-42.9) % MCV 98 H (79-97) fl MCH 33 H (28-32) pg MCHC 33 (30-34) % RDW 12.5 L (13.2-15.2) % Plt Count 185 (140-440) K/mm3 Lymph % (Auto) 36.5 H (13.4-35.0) % Luce % (Auto) 9.4 H (0.0-7.3) % Eos % (Auto) 7.1 H (0.0-4.3) % Baso % (Auto) 1.3 (0.0-1.8) % Lymph # 1.5 (1.2-5.4) K/mm3 Luce # 0.4 (0.0-0.8) K/mm3 Eos # 0.3 (0.0-0.4) K/mm3 Baso # 0.1 (0.0-0.1) K/mm3 Seg Neutrophils % 45.7 (40.0-70.0) % Seg Neutrophils # 1.9 (1.8-7.7) K/mm3 Sodium 141 (137-145) mmol/L Potassium 4.0 (3.6-5.0) mmol/L Chloride 102.4 (98-107) mmol/L Carbon Dioxide 25 (22-30) mmol/L Anion Gap 18 mmol/L BUN 9 (7-17) mg/dL Creatinine 0.7 (0.7-1.2) mg/dL Estimated GFR > 60 ml/min BUN/Creatinine Ratio 13 % Glucose 97 (65-100) mg/dL Calcium 9.5 (8.4-10.2) mg/dL Total Bilirubin 0.40 (0.1-1.2) mg/dL AST 15 (5-40) units/L ALT 11 (7-56) units/L Alkaline Phosphatase 46 (35-129) units/L Total Protein 7.4 (6.3-8.2) g/dL Albumin 4.5 (3.9-5) g/dL Albumin/Globulin Ratio 1.6 % Lipase 37 (13-60) units/L Urine Color Yellow (Yellow) Urine Turbidity Clear (Clear) Urine pH 6.0 (5.0-7.0) Ur Specific [place] 1.018 (1.003-1.030) Urine Protein <15 mg/dl (Negative) mg/dL Urine Glucose (UA) Neg (Negative) mg/dL Urine Ketones Neg (Negative) mg/dL Urine Blood Neg (Negative) Urine Nitrite Neg (Negative) Urine Bilirubin Neg (Negative) Urine Urobilinogen < 2.0 (<2.0) mg/dL Ur Leukocyte Esterase Neg (Negative) Urine WBC (Auto) 1.0 (0.0-6.0) /HPF Urine RBC (Auto) 3.0 (0.0-6.0) /HPF U Epithel Cells (Auto) 4.0 (0-13.0) /HPF Urine Mucus Few /HPF Urine HCG, Qual (Negative) 11/11/19 Range/Units 02:59 WBC (4.5-11.0) K/mm3 RBC (3.65-5.03) M/mm3 Hgb (10.1-14.3) gm/dl Hct (30.3-42.9) % MCV (79-97) fl MCH (28-32) pg MCHC (30-34) % RDW (13.2-15.2) % Plt Count (140-440) K/mm3 Lymph % (Auto) (13.4-35.0) % Luce % (Auto) (0.0-7.3) % Eos % (Auto) (0.0-4.3) % Baso % (Auto) (0.0-1.8) % Lymph # (1.2-5.4) K/mm3 Luce # (0.0-0.8) K/mm3 Eos # (0.0-0.4) K/mm3 Baso # (0.0-0.1) K/mm3 Seg Neutrophils % (40.0-70.0) % Seg Neutrophils # (1.8-7.7) K/mm3 Sodium (137-145) mmol/L Potassium (3.6-5.0) mmol/L Chloride (98-107) mmol/L Carbon Dioxide (22-30) mmol/L Anion Gap mmol/L BUN (7-17) mg/dL Creatinine (0.7-1.2) mg/dL Estimated GFR ml/min BUN/Creatinine Ratio % Glucose (65-100) mg/dL Calcium (8.4-10.2) mg/dL Total Bilirubin (0.1-1.2) mg/dL AST (5-40) units/L ALT (7-56) units/L Alkaline Phosphatase (35-129) units/L Total Protein (6.3-8.2) g/dL Albumin (3.9-5) g/dL Albumin/Globulin Ratio % Lipase (13-60) units/L Urine Color (Yellow) Urine Turbidity (Clear) Urine pH (5.0-7.0) Ur Specific [place] (1.003-1.030) Urine Protein (Negative) mg/dL Urine Glucose (UA) (Negative) mg/dL Urine Ketones (Negative) mg/dL Urine Blood (Negative) Urine Nitrite (Negative) Urine Bilirubin (Negative) Urine Urobilinogen (<2.0) mg/dL Ur Leukocyte Esterase (Negative) Urine WBC (Auto) (0.0-6.0) /HPF Urine RBC (Auto) (0.0-6.0) /HPF U Epithel Cells (Auto) (0-13.0) /HPF Urine Mucus /HPF Urine HCG, Qual Negative (Negative) - EKG Data -: EKG Interpreted by [facility] EKG shows normal: sinus rhythm, axis, intervals, QRS complexes, ST-T waves - EKG Data When compared to previous EKG there are: previous EKG unavailable Interpretation: normal EKG - Radiology Data Radiology results: pending, report reviewed, image reviewed Print Report Referring Physician: ENDER ARRIOLA Patient Name: CANDY NINA Date of : 1975 Sex: Female Report Date: 2019-11-11 Report Status: Finalized Findings [facility] [address] [place] [address] Cat Scan Report Signed Patient: CANDY NINA MR#: [id number] : 1975 Acct:[id number] Age/Sex: 44 / F ADM Date: 11/11/19 Loc: ED Attending Dr: Ordering Physician: ENDER ARRIOLA MD Date of Service: 11/11/19 Procedure(s): CT abdomen pelvis w con Accession Number(s): [id number] cc: ENDER ARRIOLA MD CT abdomen pelvis w con INDICATION: epigastric pain n/v/d, hx of fever. TECHNIQUE: All CT scans at this location are performed using the following dose modulation technique: Automated exposure control. Helical slices were obtained through the abdomen and pelvis. 100 cc of Omnipaque 300 is administered. COMPARISON: None available. FINDINGS: Abdomen: No acute abnormality is seen in the lower chest. The liver, spleen, pancreas, adrenal glands, and kidneys show no acute abnormality. There is no obstruction, inflam mation, or free air. There are no abnormal fluid collections. There is some mild wall thickening noted in the transverse colon and in the sigmoid colon. Pelvis: The appendix is unremarkable. There is no obstruction or inflammation. Multiple phleboliths are noted. There are scattered diverticula in the colon. There is no CT evidence of diverticulitis. On review of bone windows, no acute osseous abnormalities are seen. IMPRESSION: 1. Some mild wall thickening in the colon. This is not specific but could represent colitis There is no obstruction or inflammation. There is no free air. Signer Name: Samm Harrison MD Signed: 11/11/2019 4:07 AM Workstation Name: [id number] Transcribed By: SS Dictated By: Samm Harrison MD Electronically Authenticated By: Samm Harrison MD Signed Date/Time: 11/11/19406 DD/ 1 Critical care attestation.: If time is entered above; I have spent that time in minutes in the direct care of this critically ill patient, excluding procedure time. ED Disposition Clinical Impression: Nausea & vomiting, Diarrhea, Epigastric abdominal pain Disposition: TO HOME OR SELFCARE Is pt being admited?: No Does the pt Need Aspirin: No Condition: Stable Additional Instructions: Recommend that patient drank 4-6 cups of water per day. Do not take metformin medication for the next 2 days, if patient takes this medication. Advance diet as tolerated, bread, rice, apples, toast. Take pain medication, nausea medication, antibiotics as needed and/or directed. Recommend patient follow up with an outpatient retirement consultant in 4-6 weeks for repeat evaluation, and consideration for possible colonoscopy, to exclude cancer, tumor, malignancy Please return to the emergency room with projectile vomiting, change in mental status, confusion, inability to tolerate liquid feeds, new, worse or different symptoms not present on the initial emergency room evaluation. Referrals: [facility] [Provider Group] - 3-5 Days [facility] [Provider Group] - 3-5 Days
[2019-11-11 03:04] LABS: Bilirubin,Urine NEG (Negative); Blood,Urine NEG (Negative); Color,Urine Yellow (Yellow); Mucus,Urine FEW /HPF; Protein,Urine <15 mg/dL mg/dL (Negative); Urobilinogen,Urine < 2.0 mg/dL (<2.0)
[2019-11-11 03:18] LABS: HCG Qualitative,Urine Negative (Negative)
--- NOTE | 2019-11-11 04:11 | Cat Scan Report ---
CT abdomen pelvis w con INDICATION: epigastric pain n/v/d, hx of fever. TECHNIQUE: All CT scans at this location are performed using the following dose modulation technique: Automated exposure control. Helical slices were obtained through the abdomen and pelvis. 100 cc of Omnipaque 30 0 is administered. COMPARISON: None available. FINDINGS: Abdomen: No acute abnormality is seen in the lower chest. The liver, spleen, pancreas, adrenal glands , and kidneys show no acute abnormality. There is no obstruction, inflammation, or free air. There ar e no abnormal fluid collections. There is some mild wall thickening noted in the transverse colon and in the sigmoid colon. Pelvis: The appendix is unremarkable. There is no obstruction or inflammation. Multiple phleboliths a re noted. There are scattered diverticula in the colon. There is no CT evidence of diverticulitis. On review of bone windows, no acute osseous abnormalities are seen. IMPRESSION: 1. Some mild wall thickening in the colon. This is not specific but could represent colitis There is no obstruction or inflammation. There is no free air. Signer Name: Samm Harrison MD Signed: 11/11/2019 4:07 AM Workstation Name: [id number]
[2019-11-11 05:26] VITALS: BP 122/60
== END 2019-11-11 05:00 | disposition home or self-care (01) ==
LOC: ED 01:20
DX: R11.2 Nausea with vomiting, unspecified (principal); R10.13 Epigastric pain; R19.7 Diarrhea, unspecified; F12.10 Cannabis abuse, uncomplicated; Z88.8 Allergy status to other drugs, medicaments and biological substances; Z90.49 Acquired absence of other specified parts of digestive tract; Z98.51 Tubal ligation status; Z79.899 Other long term (current) drug therapy
CPT/HCPCS: 36415; 74177; 80053; 81001; 81025; 82550; 83690; 83735; 85025; 93005; 93010; 96361; 96372; 96374; 96375; 99284; J0500; J2405; J7030; Q9967

== ENCOUNTER 2020-03-27 11:17 | Emergency (ER) | payer MEDICAID, OTHER ==
--- NOTE | 2020-03-27 11:55 | Event Note ---
ED Screening Note ED Screening Note: pt is a 45 yo female who presents to the ED with c/o upper abd pain began 3 days ago associated n/v/d no fever no recent abx no sick contacts endorses frequent marijuana use PMHx IBS, fibromyalgia PSHx cholecystectomy This initial assessment/diagnostic orders/clinical plan/treatment(s) is/are subject to change based on patients health status, clinical progression and re- assessment by fellow clinical providers in the ED. Further treatment and workup at subsequent clinical providers discretion. Patient/guardian urged not to elope from the ED as their condition may be serious if not clinically assessed and managed. Initial orders include: labs, ua, urine preg
[2020-03-27 12:56] LABS: Bacteria,Urine 1+ /HPF (Negative); Bilirubin,Urine NEG (Negative); Blood,Urine NEG (Negative); Color,Urine Yellow (Yellow); HCG Qualitative,Urine Negative (Negative); Mucus,Urine 1+ /HPF; Protein,Urine <15 mg/dL mg/dL (Negative)
--- NOTE | 2020-03-27 13:27 | Emergency Department Report ---
ED Abdominal Pain HPI - General Chief Complaint: Abdominal Pain Stated Complaint: CANT STOP USING THE BATHROOM Time Seen by Provider: 03/27/20 11:53 Source: EMS Mode of arrival: Ambulatory Limitations: No Limitations - History of Present Illness Initial Comments: 45-year-old F [place]an female with past medical history of IBS, diverticulitis, fibromyalgia and hypertension as well as cholecystectomy presents to the emergency department complaining of a few day history of waxing and waning abdominal pain to the epigastric region associated with intestinal cramps and watery loose stool but no hemoptysis no hematemesis no hematochezia. States that she has previous history of this happening multiple occasions feels it is progressively worsening . MD Complaint: abdominal pain -: Gradual, days(s) Location: epigastric Radiation: none Severity: mild Quality: aching, dull Consistency: constant Improves With: nothing Worsens With: nothing Associated Symptoms: nausea, diarrhea. denies: chills, dysuria, hematemesis, hematochezia, melena, hematuria, anorexia, syncope - Related Data Previous Rx's Medication Instructions Recorded Last Taken Type Guaifenesin/Pseudoephedrne HCl 1 tab PO BID PRN #20 tab 06/05/18 Unknown Rx [Mucinex D ER 1,200-120 mg Tab] Ibuprofen [Motrin] 800 mg PO Q8HR PRN #30 tablet 06/05/18 Unknown Rx Acetaminophen [Non-Aspirin Extra 500 mg PO Q6HR PRN #30 tablet 11/11/19 Unknown Rx Strength] Amoxicillin/Potassium Clav 1 each PO BID #10 tablet 11/11/19 Unknown Rx [Augmentin 875-125 Tablet] Famotidine [Pepcid] 20 mg PO BID #10 tablet 11/11/19 Unknown Rx Ale Root [Ale] 250 mg PO QID PRN #30 capsule 11/11/19 Unknown Rx Metoclopramide [Reglan] 10 mg PO QID PRN #30 tablet 11/11/19 Unknown Rx Allergies Allergy/AdvReac Type Severity Reaction Status Date / Time ciprofloxacin [From Cipro] Allergy Vomiting Verified 11/11/19 01:29 sulfamethoxazole Allergy Vomiting Verified 11/11/19 01:29 [From Bactrim] trimethoprim [From Bactrim] Allergy Vomiting Verified 11/11/19 01:29 aspirin AdvReac Unknown Verified 05/29/17 09:54 metronidazole [From Flagyl] AdvReac Unknown Verified 05/29/17 09:54 ED Review of Systems ROS: Stated complaint: CANT STOP USING THE BATHROOM Other details as noted in HPI Comment: All other systems reviewed and negative ED Past Medical Hx - Past Medical History Previous Medical History?: Yes Hx Hypertension: Yes (controlled) Additional medical history: ibs, diverticulitis, neuropathy,fibromyalgia - Surgical History Past Surgical History?: Yes Hx Cholecystectomy: Yes (2016) Additional Surgical History: Bilateral tubal ligation 20 years ago, 3 . adhesion removal from stomach - Social History Smoking Status: Never Smoker Substance Use Type: Alcohol, Marijuana - Medications Home Medications: Home Medications Medication Instructions Recorded Confirmed Last Taken Type Guaifenesin/Pseudoephedrne HCl 1 tab PO BID PRN #20 tab 06/05/18 Unknown Rx [Mucinex D ER 1,200-120 mg Tab] Ibuprofen [Motrin] 800 mg PO Q8HR PRN #30 tablet 06/05/18 Unknown Rx Acetaminophen [Non-Aspirin Extra 500 mg PO Q6HR PRN #30 tablet 11/11/19 Unknown Rx Strength] Amoxicillin/Potassium Clav 1 each PO BID #10 tablet 11/11/19 Unknown Rx [Augmentin 875-125 Tablet] Famotidine [Pepcid] 20 mg PO BID #10 tablet 11/11/19 Unknown Rx Ale Root [Ale] 250 mg PO QID PRN #30 capsule 11/11/19 Unknown Rx Metoclopramide [Reglan] 10 mg PO QID PRN #30 tablet 11/11/19 Unknown Rx ED Physical Exam - General Limitations: No Limitations General appearance: alert, in no apparent distress - Head Head exam: Present: atraumatic, normocephalic - Eye Eye exam: Present: normal appearance, PERRL, EOMI Pupils: Present: normal accommodation - ENT ENT exam: Present: normal exam, normal orophraynx, mucous membranes moist - Neck Neck exam: Present: normal inspection, full ROM - Respiratory Respiratory exam: Present: normal lung sounds bilaterally. Absent: respiratory distress, wheezes, rhonchi, stridor, chest wall tenderness - Cardiovascular Cardiovascular Exam: Present: regular rate, normal rhythm. Absent: systolic murmur, diastolic murmur, rubs, gallop - GI/Abdominal GI/Abdominal exam: Present: soft, normal bowel sounds. Absent: tenderness, guarding, rebound, hyperactive bowel sounds, hypoactive bowel sounds - Extremities Exam Extremities exam: Present: normal inspection, full ROM, normal capillary refill - Back Exam Back exam: Present: normal inspection. Absent: CVA tenderness (R), CVA tenderness (L) - Neurological Exam Neurological exam: Present: alert, oriented X3, CN II-XII intact, normal gait - Psychiatric Psychiatric exam: Present: normal affect, normal mood. Absent: anxious, flat affect - Skin Skin exam: Present: warm, dry, intact, normal color. Absent: rash, cyanosis, diaphoretic ED Course Vital Signs 03/27/20 03/27/20 03/27/20 11:24 15:35 16:49 Temperature 98.0 F 98.0 F Pulse Rate 77 72 Respiratory 18 18 15 Rate Blood Pressure 116/78 114/71 O2 Sat by Pulse 98 99 100 Oximetry ED Medical Decision Making - Lab Data Result diagrams: 03/27/20 12:40 03/27/20 12:40 Lab Results 03/27/20 03/27/20 03/27/20 Range/Units 11:36 12:22 12:40 WBC 5.5 (4.5-11.0) K/mm3 RBC 3.68 (3.65-5.03) M/mm3 Hgb 12.0 (10.1-14.3) gm/dl Hct 35.9 (30.3-42.9) % MCV 98 H (79-97) fl MCH 33 H (28-32) pg MCHC 34 (30-34) % RDW 12.8 L (13.2-15.2) % Plt Count 176 (140-440) K/mm3 Lymph % (Auto) 27.2 (13.4-35.0) % [place] % (Auto) 8.2 H (0.0-7.3) % Eos % (Auto) 2.9 (0.0-4.3) % Baso % (Auto) 0.5 (0.0-1.8) % Lymph # 1.5 (1.2-5.4) K/mm3 [place] # 0.4 (0.0-0.8) K/mm3 Eos # 0.2 (0.0-0.4) K/mm3 Baso # 0.0 (0.0-0.1) K/mm3 Seg Neutrophils % 61.2 (40.0-70.0) % Seg Neutrophils # 3.4 (1.8-7.7) K/mm3 Sodium (137-145) mmol/L Potassium (3.6-5.0) mmol/L Chloride (98-107) mmol/L Carbon Dioxide (22-30) mmol/L Anion Gap mmol/L BUN (7-17) mg/dL Creatinine (0.7-1.2) mg/dL Estimated GFR ml/min BUN/Creatinine Ratio % Glucose (65-100) mg/dL POC Glucose 94 (70-105) Calcium (8.4-10.2) mg/dL Total Bilirubin (0.1-1.2) mg/dL AST (5-40) units/L ALT (7-56) units/L Alkaline Phosphatase (35-129) units/L Total Protein (6.3-8.2) g/dL Albumin (3.9-5) g/dL Albumin/Globulin Ratio % Lipase (13-60) units/L Urine Color Yellow (Yellow) Urine Turbidity Slightly-cloudy (Clear) Urine pH 5.0 (5.0-7.0) Ur Specific [place] 1.023 (1.003-1.030) Urine Protein <15 mg/dl (Negative) mg/dL Urine Glucose (UA) Neg (Negative) mg/dL Urine Ketones Neg (Negative) mg/dL Urine Blood Neg (Negative) Urine Nitrite Neg (Negative) Urine Bilirubin Neg (Negative) Urine Urobilinogen 2.0 (<2.0) mg/dL Ur Leukocyte Esterase Neg (Negative) Urine WBC (Auto) 1.0 (0.0-6.0) /HPF Urine RBC (Auto) 1.0 (0.0-6.0) /HPF U Epithel Cells (Auto) 7.0 (0-13.0) /HPF Urine Bacteria (Auto) 1+ (Negative) /HPF Urine Mucus 1+ /HPF Urine HCG, Qual Negative (Negative) 03/27/20 Range/Units 12:40 WBC (4.5-11.0) K/mm3 RBC (3.65-5.03) M/mm3 Hgb (10.1-14.3) gm/dl Hct (30.3-42.9) % MCV (79-97) fl MCH (28-32) pg MCHC (30-34) % RDW (13.2-15.2) % Plt Count (140-440) K/mm3 Lymph % (Auto) (13.4-35.0) % [place] % (Auto) (0.0-7.3) % Eos % (Auto) (0.0-4.3) % Baso % (Auto) (0.0-1.8) % Lymph # (1.2-5.4) K/mm3 [place] # (0.0-0.8) K/mm3 Eos # (0.0-0.4) K/mm3 Baso # (0.0-0.1) K/mm3 Seg Neutrophils % (40.0-70.0) % Seg Neutrophils # (1.8-7.7) K/mm3 Sodium 139 (137-145) mmol/L Potassium 3.9 (3.6-5.0) mmol/L Chloride 103.0 (98-107) mmol/L Carbon Dioxide 22 (22-30) mmol/L Anion Gap 18 mmol/L BUN 11 (7-17) mg/dL Creatinine 0.7 (0.7-1.2) mg/dL Estimated GFR > 60 ml/min BUN/Creatinine Ratio 16 % Glucose 99 (65-100) mg/dL POC Glucose (70-105) Calcium 9.3 (8.4-10.2) mg/dL Total Bilirubin 0.30 (0.1-1.2) mg/dL AST 17 (5-40) units/L ALT 15 (7-56) units/L Alkaline Phosphatase 42 (35-129) units/L Total Protein 6.5 (6.3-8.2) g/dL Albumin 4.3 (3.9-5) g/dL Albumin/Globulin Ratio 2.0 % Lipase 39 (13-60) units/L Urine Color (Yellow) Urine Turbidity (Clear) Urine pH (5.0-7.0) Ur Specific [place] (1.003-1.030) Urine Protein (Negative) mg/dL Urine Glucose (UA) (Negative) mg/dL Urine Ketones (Negative) mg/dL Urine Blood (Negative) Urine Nitrite (Negative) Urine Bilirubin (Negative) Urine Urobilinogen (<2.0) mg/dL Ur Leukocyte Esterase (Negative) Urine WBC (Auto) (0.0-6.0) /HPF Urine RBC (Auto) (0.0-6.0) /HPF U Epithel Cells (Auto) (0-13.0) /HPF Urine Bacteria (Auto) (Negative) /HPF Urine Mucus /HPF Urine HCG, Qual (Negative) - Radiology Data Radiology results: report reviewed [facility] [address] [place] [address] Cat Scan Report Signed Patient: CANDY NINA MR#: [id number] : 1975 Acct:[id number] Age/Sex: 45 / F ADM Date: 03/27/20 Loc: ED Attending Dr: Ordering Physician: TRUDY AMOS Date of Service: 03/27/20 Procedure(s): CT abdomen pelvis w con Accession Number(s): [id number] cc: TRUDY AMOS CT ABDOMEN AND PELVIS WITH CONTRAST INDICATION / CLINICAL INFORMATION: MAIN: upper abdominal p ain RT UPPER QUAD OAIN SINCE THIS MORNING OMNIPAQUE 300 100ML. TECHNIQUE: Axial CT images were obtained through the abdomen and pelvis after 100 mL Omnipaque [address] scans at this location are performed using CT dose reduction for ALARA by means of automated exposure control. COMPARISON: CT abdomen pelvis 11/11/2019 FINDINGS: LOWER CHEST: No significant abnormality. LIVER: No significant abnormality. BILIARY SYSTEM: Prior cholecystectomy. No biliary dilation. PANCREAS: No significant abnormality. SPLEEN: No significant abnormality. ADRENALS: No significant abnormality. KIDNEYS and URETERS: No significant abnormality. STOMACH / BOWEL: No significant abnormality. PERITONEUM: Trace pelvic free fluid, likely physiologic. No free air. No fluid collection. LYMPH NODES: No significant adenopathy. VASCULAR STRUCTURES: No significant abnormality. URINARY BLADDER: No significant abnormality. REPRODUCTIVE ORGANS: There is a 2 cm left dominant follicle/functional cyst. ADDITIONAL FINDINGS: None. SKELETAL SYSTEM: Mild sclerotic degenerative change along the left sacroiliac joint. IMPRESSION: 1. No acute process identified within the abdomen or pelvis to account for patient's abdominal pain. Signer Name: Chelsea Guerrero MD Signed: 03/27/2020 3:15 PM Workstation Name: [id number] Transcribed By: C Dictated By: Chelsea Guerrero MD Electronically Authenticated By: Chelsea Guerrero MD Signed Date/Time: 03/27/20 1515 DD/ 1500 TD/TT: - Medical Decision Making This patient presents with abdominal pain of unclear etiology. A CT scan was performed to evaluate for potential causes of the abdominal pain, however, neither the clinical exam nor the CT has identified an emergent etiology for the abdominal pain. Specifically, given the benign exam, the laboratory studies, a nd unremarkable CT, I have a very low suspicion for appendicitis, ischemic bowel, bowel perforation, or any other life threatening disease. I have discussed with the patient the level of uncertainty with undifferentiated abdominal pain and clearly explained the need to follow-up as noted on the disc harge instructions, or return to the Emergency Department immediately if the pain worsens, develops fever, persistent and uncontrollable vomiting, or for any new symptoms or concerns. Critical care attestation.: If time is entered above; I have spent that time in minutes in the direct care of this critically ill patient, excluding procedure time. ED Disposition Clinical Impression: Diarrhea, Abdominal pain Disposition: DC-01 TO HOME OR SELFCARE Is pt being admited?: No Does the pt Need Aspirin: No Condition: Stable Instructions: Gastroenteritis (ED), Acute Nausea and Vomiting (ED), Acute Diarrhea (ED), Abdominal Pain (ED) Referrals: MIKE ENRIQUE MD [Primary Care Provider] - 3-5 Days [facility] [Provider Group] - 3-5 Days Forms: Work/School Release Form(ED)
[2020-03-27 13:42] LABS: Basophils % (Auto) 0.5 % (0.0-1.8); Eosinophils # (Auto) 0.2 K/mm3 (0.0-0.4); Eosinophils % (Auto) 2.9 % (0.0-4.3); Hematocrit 35.9 % (30.3-42.9); Lymphocytes # (Auto) 1.5 K/mm3 (1.2-5.4); Lymphocytes % (Auto) 27.2 % (13.4-35.0); Mean Corpuscular HGB Conc 34 % (30-34); Mean Corpuscular Volume 98 fl (79-97); Monocytes # (Auto) 0.4 K/mm3 (0.0-0.8); Monocytes % (Auto) 8.2 % (0.0-7.3); Platelet Count 176 K/mm3 (140-440); Red Blood Count 3.68 M/mm3 (3.65-5.03); Red Cell Distribution Width 12.8 % (13.2-15.2)
[2020-03-27 13:49] LABS: Alanine Aminotransferase 15 units/L (7-56); Albumin 4.3 g/dL (3.9-5); BUN/Creatinine Ratio 16; Blood Urea Nitrogen 11 mg/dL (7-17); Calcium 9.3 mg/dL (8.4-10.2); Hemolysis Index 16
[2020-03-27] MEDS ORDERED: HYOSCYAMINE SUBL 0.125 MG TAB SL ONE (14:20)
[2020-03-27] MEDS ORDERED: ONDANSETRON 4 MG/2 ML INJ IV STA (14:20)
--- NOTE | 2020-03-27 15:20 | Cat Scan Report ---
CT ABDOMEN AND PELVIS WITH CONTRAST INDICATION / CLINICAL INFORMATION: MAIN: upper abdominal p ain RT UPPER QUAD OAIN SINCE THIS MORNING OMNIPAQUE 300 100ML. TECHNIQUE: Axial CT images were obtained through the abdomen and pelvis after 100 mL Omnipaque [address] scans at this location are performed using CT dose reduction for ALARA by means of automated exposure control. COMPARISON: CT abdomen pelvis 11/11/2019 FINDINGS: LOWER CHEST: No significant abnormality. LIVER: No significant abnormality. BILIARY SYSTEM: Prior cholecystectomy. No biliary dilation. PANCREAS: No significant abnormality. SPLEEN: No significant abnormality. ADRENALS: No significant abnormality. KIDNEYS and URETERS: No significant abnormality. STOMACH / BOWEL: No significant abnormality. PERITONEUM: Trace pelvic free fluid, likely physiologic. No free air. No fluid collection. LYMPH NODES: No significant adenopathy. VASCULAR STRUCTURES: No significant abnormality. URINARY BLADDER: No significant abnormality. REPRODUCTIVE ORGANS: There is a 2 cm left dominant follicle/functional cyst. ADDITIONAL FINDINGS: None. SKELETAL SYSTEM: Mild sclerotic degenerative change along the left sacroiliac joint. IMPRESSION: 1. No acute process identified within the abdomen or pelvis to account for patient's abdominal pain. Signer Name: Chelsea Guerrero MD Signed: 03/27/2020 3:15 PM Workstation Name: [id number]
[2020-03-27 16:53] VITALS: BP 114/71
== END 2020-03-27 17:15 | disposition home or self-care (01) ==
LOC: ED 11:17
DX: R19.7 Diarrhea, unspecified (principal); R10.9 Unspecified abdominal pain; F12.90 Cannabis use, unspecified, uncomplicated; I10 Essential (primary) hypertension; Z79.899 Other long term (current) drug therapy; Z88.2 Allergy status to sulfonamides; Z88.6 Allergy status to analgesic agent; Z88.8 Allergy status to other drugs, medicaments and biological substances; Z90.49 Acquired absence of other specified parts of digestive tract; Z98.51 Tubal ligation status; Z98.890 Other specified postprocedural states
CPT/HCPCS: 36415; 74177; 80053; 81001; 81025; 82962; 83690; 85025; 96365; 99284; J2405; Q9967

== ENCOUNTER 2020-10-06 11:19 | Emergency (ER) | payer OTHER ==
[2020-10-06 11:28] VITALS: BP 115/71
--- NOTE | 2020-10-06 12:24 | Emergency Department Report ---
Chief Complaint: Headache Stated Complaint: HEADACHE, RUNNY NOSE Time Seen by Provider: 10/06/20 12:21 - HPI History of Present Illness: Patient is a 45-year-old female presents emergency room with complaints of headache, sore throat, nausea that began 2 weeks ago. She states that she has only been taking ibuprofen with some relief. No fever, vomiting, diarrhea, vision changes, numbness, weakness, neck stiffness, chest pain, shortness of breath, cough, abdominal pain. She has a past medical history of diverticulitis and fibromyalgia. She has an allergy to Cipro, Bactrim, aspirin, Flagyl. She denies any recent travel. She states that she has had sick contacts at her work who were positive for COVID-19. Last menstrual cycle 09/30/2020. Vitals are normal On exam: Non toxic appearing, no acute distress atraumatic, normocephalic normal appearance of the eyes, PERRL, EOMI, no periorbital edema or ecchymosis moist mucus membranes, normal oropharynx, normal TMs and canals bilaterally, uvula is midline, no uvular edema or deviation regular heart rate and rhythm, no gallops, no rubs, no murmurs breath sounds are clear bilaterally, no w/r/r, no stridor, no respiratory distress, no accessory muscle use A&O x4, no focal neuro deficit skin is warm, dry, intact Patient is presenting for viral-like symptoms On exam she has no signs of bacterial pneumonia or bacterial bronchitis, no signs of tonsillitis or pharyngitis She has no meningeal signs Patient is presenting with the symptoms during COVID-19 pandemic, discussed COVID-19 with patient, discussed return precautions, discussed outpatient testing Symptoms have already been ongoing for 2 weeks, she does not need further quarantine Her vitals are normal, she is afebrile, no hypoxia, no tachycardia She does not meet hospital criteria for COVID-19 admission or for COVID-19 testing advised pt May take [id number] medication for your symptoms. Increase your water intake. Follow-up with your primary care doctor. Return to emergency room for any new or worsening symptoms. Please follow your work guidelines for COVID-19 exposure. Discussed supportive care and symptomatic treatment Discussed very strict return precautions Medical screening examination performed and there is no threat to life or limb at this time - Exam Vital Signs: Vital Signs 10/06/20 11:27 Temperature 98.0 F Pulse Rate 97 H Respiratory 20 Rate Blood Pressure 115/71 O2 Sat by Pulse 97 Oximetry MSE screening note: Focused history and physical exam performed. ED Disposition for MSE Clinical Impression: Sore throat, Nausea Headache Qualifiers: Headache type: unspecified Headache chronicity pattern: acute headache Intractability: not intractable Qualified Code(s): R51.9 - Headache, unspecified Disposition: MED SCREENING EXAM-LEFT Is pt being admited?: No Does the pt Need Aspirin: No Condition: Stable Instructions: Viral Illness, Adult Additional Instructions: May take [id number] medication for your symptoms. Increase your water intake. Follow-up with your primary care doctor. Return to emergency room for any new or worsening symptoms. Please follow your work guidelines for COVID-19 exposure. Referrals: KAMRYN LIPSCOMB MD [Staff Physician] - 2-3 Days [facility] [Provider Group] - 2-3 Days Time of Disposition: 12:23 Print Language: UKRAINIAN
[2020-10-06] MEDS ORDERED: SODIUM CHLORIDE 0.9% 1000 ML 1,000 ML ONE (12:36)
== END 2020-10-06 12:40 | disposition left against medical advice (07) ==
LOC: ED 11:19
DX: J02.9 Acute pharyngitis, unspecified (principal); R51.9 Headache, unspecified; R11.0 Nausea; Z53.21 Procedure and treatment not carried out due to patient leaving prior to being seen by health care provider
CPT/HCPCS: J7030